=== PATIENT | male | born 1995 ===

== ENCOUNTER 2021-06-30 13:01 | Emergency (ER) | payer SELFPAY ==
[~2021-06-30] VITALS: Ht 180.3 cm; Wt 88.5 kg
[2021-06-30 16:49] VITALS: BP 143/75
== END 2021-06-30 15:31 | disposition home or self-care (01) ==
LOC: ER 13:01
DX: S62.657A Nondisplaced fracture of middle phalanx of left little finger, initial encounter for closed fracture (principal); W22.8XXA Striking against or struck by other objects, initial encounter; Y93.89 Activity, other specified; Y92.89 Other specified places as the place of occurrence of the external cause; Y99.8 Other external cause status
CPT/HCPCS: 73140